=== PATIENT | female | born 1955 | race Caucasian/White ===

== ENCOUNTER 2017-03-08 07:55 | Emergency (ER) | payer OTHER ==
[2017-03-08 08:03] VITALS: PULSE 95; RESP 20; O2SAT 97
[2017-03-08 08:05] VITALS: TEMP 98.2
[2017-03-08] MEDS ORDERED: LIDOCAINE HCL 4% TOPICAL SOLN 50ML MM ONE (08:16)
--- NOTE | 2017-03-08 08:38 | EDPHY ---
H & P Time Seen by Provider: 03/08/17 08:13 HPI/ROS: This patient developed right-sided epistaxis spontaneously this morning when she rolled over and awakened at 10 till 5:00 a.m. she has had persistent bleeding at a moderate severity Timoteo from that Rosita since then and it is also reflex into the left side somewhat and down her throat. She has never had issues with nosebleeds in the past. She reports no antecedent trauma to the nose including no nose picking. She felt well prior to the episode. ROS: Constitutional: No significant fatigue. Hematologic: She has always been a easy bruising or but no recent change in that. Neuro: Mild frontal headache that she thinks is from caffeine withdrawal from not having coffee this morning. He states is similar to prior headaches. Cardiovascular: No lightheadedness HEENT: No recent URI symptoms. 7 point ROS is otherwise negative. Past Medical/Surgical History: Family history is negative for hemophilia Smoking Status: Never smoked Physical Exam: Physical Exam Vital signs are normal. General: Pleasant 61-year-old female in No acute distress HEENT: Nose: Mild bleeding from the right naris is present. The site of the bleeding is the anterior septum. No bleeding from the left naris. Oropharynx: There is some blood in the posterior pharynx. Eyes: Pupils equal and react to light. Extraocular motions are intact. Lungs: No respiratory distress. Cardiac: Brisk capillary refill is intact throughout. Skin: No rash or pallor. No significant bruising at this time Neuro: Alert and oriented x3 with no sensorimotor deficits. Constitutional: Initial Vital Signs Temperature (C) 36.8 C 03/08/17 07:56 Heart Rate 95 03/08/17 07:56 Respiratory Rate 20 03/08/17 07:56 Blood Pressure 120/83 H 03/08/17 07:56 O2 Sat (%) 97 03/08/17 07:56 O2 Delivery Mode Room Air Allergies/Adverse Reactions: No Known Allergies Allergy (Unverified 03/08/17 08:04) Home Medications: Medication Instructions Recorded ASPIRIN 03/08/17 Multivitamin 03/08/17 MDM/Departure - MDM Procedures: Procedure: Epistaxis control. After verbal consent was obtained, the patient was anesthetized with [a 50-50 mix of 4% lidocaine with 1-1000 concentration epinephrine. I sprayed this the patient's nares using 10 mL transient 20-gauge Angiocath 2 mL in each nares. This was followed by soaking cotton ball on the same medication and placed in the right nares for 15 minutes. The anterior epistaxis was resolves with good hemostasis. No cautery was required Following the procedure the patient was re-examined and the bleeding was well controlled. The patient tolerated the procedure well. The procedure was performed by myself. There were no complications Medications Given: Discontinued Medications Epinephrine (Adrenalin Chloride) 5 mg NS EDNOW ONE Stop: 03/08/17 08:23 Last Admin: 03/08/17 08:25 Dose: 5 ml Lidocaine HCl (Lidocaine Hcl 4% Topical Solution) 5 ml MM EDNOW ONE Stop: 03/08/17 08:17 Last Admin: 03/08/17 08:25 Dose: 5 ml ED Course/Re-evaluation: On repeat exam at 9:15 a.m. patient still has good hemostasis. Oropharynx exam reveals resolution of blood down the posterior pharynx. Patient feels comfortable. I counseled her regarding anterior epistaxis. Discussion: Patient with simple anterior epistaxis resolved with topical medications alone. No evidence of posterior epistaxis, clinical evidence of anemia, bleeding diatheses or other concerning findings - Depart Disposition: Other Psych, Not [place] Clinical Impression: Acute anterior epistaxis Condition: Good Instructions: Nosebleed (ED) Additional Instructions: Diagnosis: Anterior Epistaxis Plan: Humidifier and/or Saline mist (Moffat Minco for ex.). Avoid blowing nose picking at nose for the next 3-7 days. For any recurrent nosebleed try [id number] Afrin nasal spray and pinch bridge of the nose while leaning forward over a bowl her toilet. Go to the emergency department for any nosebleed the last more than 20 that is despite the plan. Referrals: Ilene Beckman MD [Primary Care Provider] - As per Instructions
[2017-03-08 09:26] VITALS: BP 115/81
== END 2017-03-08 09:22 | disposition home or self-care (01) ==
LOC: CED 07:55
DX: R04.0 Epistaxis (principal)

== ENCOUNTER → 2017-04-23 | Outpatient (CLI) | payer OTHER | LOC: CIMAGING 07:28 | PROVIDERS: ATTEND Family Medicine | DX: Z12.31 Encounter for screening mammogram for malignant neoplasm of breast (principal) | CPT/HCPCS: G0202 ==